=== PATIENT | female | born 1970 | race Caucasian/White ===

== ENCOUNTER → 2022-04-07 | Outpatient (CLI) | payer OTHER, SELFPAY ==
--- NOTE | 2022-04-07 | TOBX_PTH ---
PATIENT: CHRIS WONG LOC: [facility] U#:[id number] AGE/SX: 52/F ROOM: RE04/07/[address]: Dr. Lio Arzate DDS : 1970 BED: DIS: 04/07/2022 SPEC #: [id number] RECD: 04/07/22 13:05 STATUS: MAYNOR DEEPA #: [id number] AGATA: 04/07/22 00:[address]: Lio Arzate DEPT: SURGICAL PATHOLOGY RECD BY: Ritesh Holland Tissues: Tongue, NOS Procedures: Surgery Specimen Level IV HEADER OPERATION: Excisional biopsy of left lateral tongue PRE-OP DIAGNOSIS: Lesion left lateral tongue, pain, ulceration TISSUE SUBMITTED: Left lateral tongue MICROSCOPIC DIAGNOSIS Left lateral tongue lesion, biopsy: Squamous papilloma with viral cytopathic change. See comment. AM:paz 04/12/2022 COMMENT Results from immunohistochemistry ([id number]) for surrogate HPV marker (p16) will be reported separately. Case has been reviewed in consultation with Dr. Weber who concurs with the above diagnosis. IDC:SJ MICROSCOPIC DESCRIPTION Slides are reviewed. GROSS DESCRIPTION Received in fixative is one container labeled with the patient's name and designated left lateral tongue. The specimen consists of a piece of chang mucosal tissue measuring 0.6 x 0.6 x 0.4 cm. The skin surface is verrucous. The specimen is inked, bisected and submitted entirely in one cassette. / DILAN:paz 04/11/2022 TC:5 CPT: 18311
--- NOTE | 2022-04-07 | IMM_PTH ---
PATIENT: CHRIS WONG LOC: [facility] U#:[id number] AGE/SX: 52/F ROOM: RE04/07/[address]: Dr. Lio Arzate DDS : 1970 BED: DIS: 04/07/2022 SPEC #: [id number] RECD: 04/12/22 13:22 STATUS: MAYNOR REEsteban #: [id number] AGATA: 04/07/22 00:[address]: Lio Arzate DEPT: IMMUNOHISTOCHEMISTRY RECD BY: Dahlia Ahumada Tissues: Tongue, NOS Procedures: p16 (initial) KI-67 (add) PHYSICIAN & INSTITUTION [place] [id number] SPECIMEN INFORMATION: Tissue Source: Left lateral tongue Clinical Info: Lesion of left lateral tongue, pain, ulceration Specimen Number: [id number] CPT code: 54229, 47324 METHODOLOGY: Deparaffinized sections of prefer/formalin-fixed tissue or PAP/DQ stained slides are incubated with monoclonal/polyclonal antibodies/oligonucleotide probes. Localization is made via biotin free immunoperoxidase method. Appropriate controls are performed and reacted as expected. Results on target cell population are indicated in the following table: RESULTS: ANTIBODY / CLONE RESULT P16 (E6H4) positive, focal, patchy Ki-67 (30-9) positive, low These tests were developed and their performance characteristics determined by [facility]. They may not have been cleared or approved by the [place]. Food and Drug Administration. The FDA has determined that such clearance or approval is not necessary. The above immunohistochemical/dualISH markers are ordered and reviewed by the Pathologist. INTERPRETATION: Left lateral tongue, excisional biopsy: Squamous papilloma with HPV change. AM:paz 04/13/2022
== END | disposition home or self-care (01) ==
LOC: LABSPEC 13:37
PROVIDERS: Referring Provider Dentist Oral and Maxillofacial Surgery; Visit Provider Dentist Oral and Maxillofacial Surgery
DX: D10.1 Benign neoplasm of tongue (principal)
CPT/HCPCS: 88305; 88341; 88342